=== PATIENT | male | born 1945 | race African-American/Black ===

== ENCOUNTER → 2018-04-26 | Outpatient (CLI) | payer MEDICARE, MEDICAID ==
[~2018-04-26] MED LIST: CALC667C4 PO; FERR-63 PO; FURO-151 PO; HYDR-1348; HYDR-4134 PO; LOP25 PO; METO-385 PO; SEVE800T8 PO; SODI650T PO; [UNRECOGNIZED DRUG - CODE]
== END | disposition home or self-care (01) ==
LOC: RAD 09:58
PROVIDERS: ATTEND Internal Medicine Nephrology
DX: M47.892 Other spondylosis, cervical region (principal); G95.29 Other cord compression
CPT/HCPCS: 72040

== ENCOUNTER → 2018-08-10 | Outpatient (CLI) | payer MEDICARE, MEDICAID | END | disposition home or self-care (01) | LOC: MRI 10:29 | PROVIDERS: ATTEND Neurological Surgery | DX: M48.02 Spinal stenosis, cervical region (principal) | CPT/HCPCS: 72141 ==

== ENCOUNTER → 2018-09-22 | Outpatient (CLI) | payer MEDICARE, MEDICAID | END | disposition home or self-care (01) | LOC: CT 09:34 | PROVIDERS: ATTEND Neurological Surgery | DX: M48.02 Spinal stenosis, cervical region (principal); M40.292 Other kyphosis, cervical region; M47.892 Other spondylosis, cervical region; S12.500D Unspecified displaced fracture of sixth cervical vertebra, subsequent encounter for fracture with routine healing; X58.XXXD Exposure to other specified factors, subsequent encounter ==

== ENCOUNTER 2019-02-19 08:31 | Inpatient (IN) | payer MEDICARE, MEDICAID ==
[~2019-02-19] VITALS: Ht 190.5 cm; Wt 65.0 kg
[2019-02-19] MEDS ORDERED: SODIUM CHLORIDE 0.9% 1,000 ML IV ONE (09:07)
[2019-02-19 10:32] LABS: BASOPHILS % 0.8 % (0.0-2.0); EOSINOPHILS % 0.4 % (0.0-5.0); HEMATOCRIT. 35.8 % (42.0-52.0); HEMOGLOBIN. 11.5 g/dL (14.0-18.0); LYMPHOCYTES % 7.5 % (20.0-50.0); MEAN CORPUSCULAR HEMOGLOBIN 32.7 pg (28.0-32.0); MEAN CORPUSCULAR VOLUME 102.3 fL (80.0-94.0); MEAN PLATELET VOLUME 8.5 fl (7.4-10.4); MONOCYTES % 6.3 % (2.0-8.0); PLATELET 236 x1000/uL (130-400); RED CELL DISTRIBUTION WIDTH 15.5 % (11.6-14.6)
[2019-02-19 10:33] LABS: CHLORIDE 97 mEq/L (98-107)
[2019-02-19 10:37] LABS: ETHANOL BLOOD < 10 mg/dL
[2019-02-19 10:42] LABS: CREATINE KINASE 190 IU/L (39-308)
[2019-02-19] MEDS ORDERED: INSULIN REGULAR (HUMULIN R) 300UNITS/3ML IV NR (12:30)
[2019-02-19] MEDS ORDERED: DEXTROSE 50% WATER 50ML SYRINGE IV NR (12:30)
[2019-02-19] MEDS ORDERED: SODIUM BICARBONATE 8.4% 1 MEQ/ML 50ML SYR IV NR (12:30)
[2019-02-19] MEDS ORDERED: CALCIUM GLUCONATE 1,000 MG in DEXT 5% WATER 90 ML IV NR (12:30)
[2019-02-19 12:49] LABS: CLARITY URINE CLOUDY (CLEAR); COLOR URINE YELLOW (YELLOW); KETONES URINE NEGATIVE (NEGATIVE); LEUKOCYTE ESTERASE URINE TRACE (NEGATIVE); NITRITE URINE NEGATIVE (NEGATIVE); OCCULT BLOOD URINE 1+ (NEGATIVE); PROTEIN URINE 4+ (NEGATIVE); SPECIFIC GRAVITY URINE 1.026 (1.005-1.030); UROBILINOGEN URINE 0.2 E.U./dL (0.2-1.0)
[2019-02-19 13:05] LABS: *AMPHETAMINES SCREEN URINE NEGATIVE (NEGATIVE); *BARBITURATES SCREEN URINE NEGATIVE (NEGATIVE); *BENZODIAZEPINES SCREEN URINE NEGATIVE (NEGATIVE); *COCAINE SCREEN URINE NEGATIVE (NEGATIVE); METHADONE URINE SCREEN NEGATIVE (NEGATIVE); OPIATES URINE SCREEN NEGATIVE (NEGATIVE)
[2019-02-19 13:06] LABS: CANNABINOID URINE SCREEN PRESUMTIVE POSITIVE (NEGATIVE); PHENCYCLIDINE URINE SCREEN NEGATIVE (NEGATIVE)
[2019-02-19] MEDS: METOPROLOL TARTRATE 25MG TABLET PO SCH ×2 (13:30→22:16)
[2019-02-19 14:33] LABS: INR 1.4
[2019-02-19 15:30] VITALS: BP 101/63
[2019-02-19 16:00] VITALS: BP 121/62
[2019-02-19 20:17] VITALS: BP 104/81
[2019-02-19] MEDS ORDERED: SUCR500T MT (20:52)
[2019-02-19] MEDS ORDERED: ISOS30TA12 MT (20:52)
[2019-02-19] MEDS ORDERED: WARF1TAB85 MT (20:52)
[2019-02-19] MEDS ORDERED: VALE150C PO (20:52)
[2019-02-19] MEDS ORDERED: FERR210T MT (20:52)
[2019-02-19 20:58] LABS: CREATINE KINASE 144 IU/L (39-308)
[2019-02-19] MEDS: ENOXAPARIN 30MG/0.3ML SYR SUBCUT SCH (22:33)
[2019-02-20 00:26] VITALS: BP 117/66
[2019-02-20 04:00] VITALS: BP 110/58
[2019-02-20 06:53] LABS: HEMATOCRIT. 30.6 % (42.0-52.0); HEMOGLOBIN. 9.9 g/dL (14.0-18.0); MEAN CORPUSCULAR HEMOGLOBIN 32.9 pg (28.0-32.0); MEAN CORPUSCULAR VOLUME 102.1 fL (80.0-94.0); MEAN PLATELET VOLUME 8.5 fl (7.4-10.4); PLATELET 215 x1000/uL (130-400); RED CELL DISTRIBUTION WIDTH 15.6 % (11.6-14.6)
[2019-02-20 07:06] LABS: D-DIMER 1.31 mg/L FEU (<0.50); INR 1.7
[2019-02-20 07:49] LABS: PLATELET ESTIMATE NORMAL
[2019-02-20 08:00] VITALS: BP 115/58
[2019-02-20 08:06] LABS: CHLORIDE 103 mEq/L (98-107)
[2019-02-20 08:25] LABS: CREATINE KINASE 128 IU/L (39-308); PHOSPHORUS 4.8 mg/dL (2.5-4.9)
[2019-02-20 08:30] LABS: CREATINE KINASE MB FRACTION 7.1 ng/mL (0.5-3.6)
[2019-02-20] MEDS: SEVELAMER CARBONATE 800 MG TABLET PO SCH ×3 (09:38→17:30)
[2019-02-20] MEDS: METOPROLOL TARTRATE 25MG TABLET PO SCH ×2 (09:38→20:47)
[2019-02-20 12:00] VITALS: BP_SYST 111; BP_SYST 138; BP_DIAS 65; BP_DIAS 88
[2019-02-20] MEDS: DEXAMETHASONE 4MG/ML 1ML VIAL IV SCH ×2 (12:30→17:31)
[2019-02-20 16:00] VITALS: BP 115/63
[2019-02-20] MEDS: DOCUSATE SODIUM 100MG CAPSULE PO SCH (17:31)
[2019-02-20 20:00] VITALS: BP 109/50
[2019-02-20] MEDS: POLYETHYLENE GLYCOL 3350 (17GM) 1 DOSE PACK PO SCH (20:47)
[2019-02-20] MEDS: ENOXAPARIN 30MG/0.3ML SYR SUBCUT SCH (20:47)
[2019-02-21] VITALS: BP 130/69
[2019-02-21] MEDS: DEXAMETHASONE 4MG/ML 1ML VIAL IV SCH ×5 (00:29→23:51)
[2019-02-21 04:00] VITALS: BP 116/56
[2019-02-21] MEDS: PANTOPRAZOLE 40MG DR TABLET PO SCH (06:21)
[2019-02-21 06:31] LABS: INR 1.8; PROTHROMBIN TIME 17.6 sec (9.6-11.0)
[2019-02-21 06:51] LABS: HEMATOCRIT. 32.8 % (42.0-52.0); HEMOGLOBIN. 10.7 g/dL (14.0-18.0); MEAN CORPUSCULAR VOLUME 101.2 fL (80.0-94.0); MEAN PLATELET VOLUME 8.6 fl (7.4-10.4); PLATELET 222 x1000/uL (130-400); RED BLOOD CELL COUNT 3.24 mill/uL (4.7-6.1); RED CELL DISTRIBUTION WIDTH 14.5 % (11.6-14.6)
[2019-02-21 08:00] VITALS: BP 111/57
[2019-02-21] MEDS: METOPROLOL TARTRATE 25MG TABLET PO SCH ×2 (09:00→21:18)
[2019-02-21] MEDS: SEVELAMER CARBONATE 800 MG TABLET PO SCH ×3 (09:17→17:10)
[2019-02-21] MEDS: DOCUSATE SODIUM 100MG CAPSULE PO SCH ×2 (09:17→17:10)
[2019-02-21] MEDS: ASCORBIC ACID 500 MG TABLET PO SCH (09:17)
[2019-02-21] MEDS: BISACODYL 10MG SUPP PR SCH (09:18)
[2019-02-21] MEDS: ZINC SULFATE 220 MG ( 50 ) CAPSULE PO SCH (09:18)
[2019-02-21 12:00] VITALS: BP 109/73
[2019-02-21 16:30] VITALS: BP 119/62
[2019-02-21 16:35] LABS: PLATELET ESTIMATE NORMAL
[2019-02-21] MEDS ORDERED: WARFARIN SODIUM 5MG TABLET PO SCH (18:00)
[2019-02-21 20:00] VITALS: BP 122/66
[2019-02-21] MEDS: POLYETHYLENE GLYCOL 3350 (17GM) 1 DOSE PACK PO SCH (21:18)
[2019-02-22] VITALS: BP 111/76
[2019-02-22 04:13] VITALS: BP 107/64
[2019-02-22 06:08] LABS: INR 2.2
[2019-02-22] MEDS: DEXAMETHASONE 4MG/ML 1ML VIAL IV SCH ×3 (06:08→17:06)
[2019-02-22] MEDS: PANTOPRAZOLE 40MG DR TABLET PO SCH (06:24)
[2019-02-22 08:00] VITALS: BP 103/62
[2019-02-22] MEDS: METOPROLOL TARTRATE 25MG TABLET PO SCH (08:35)
[2019-02-22] MEDS: SEVELAMER CARBONATE 800 MG TABLET PO SCH ×3 (08:36→16:48)
[2019-02-22] MEDS: BISACODYL 10MG SUPP PR SCH (08:36)
[2019-02-22] MEDS: DOCUSATE SODIUM 100MG CAPSULE PO SCH ×2 (08:36→16:47)
[2019-02-22] MEDS: ASCORBIC ACID 500 MG TABLET PO SCH (08:36)
[2019-02-22] MEDS: ZINC SULFATE 220 MG ( 50 ) CAPSULE PO SCH (08:37)
[2019-02-22 12:00] VITALS: BP 110/65
[2019-02-22] MEDS: LACTULOSE 20G/30ML UDC PO SCH ×2 (13:58→16:44)
[2019-02-22] MEDS ORDERED: MINERAL OIL ENEMA 133ML PR SCH (14:00)
[2019-02-22 15:26] VITALS: BP 120/65
[2019-02-22] MEDS ORDERED: WARFARIN SODIUM 4MG TABLET PO SCH (18:00)
[2019-02-22 18:09] VITALS: BP 120/65
[2019-02-23] MEDS ORDERED: FAMOTIDINE 20MG TABLET PO SCH (09:00)
[2019-02-23] MEDS ORDERED: FOLIC ACID/VITAMIN B COMP W-C TABLET PO SCH (09:00)
[2019-02-23] MEDS ORDERED: EPOETIN ALFA 4000UNITS/ML VIAL SUBCUT SCH (21:00)
== END 2019-02-22 20:22 | DRG 551 ==
LOC: ER 08:31 → 6WST 12:03 → EDBEDREQ 12:04 → ENRESERV 13:48
PROVIDERS: ADMIT Family Medicine Adult Medicine; ATTEND Family Medicine Adult Medicine
PROC: 5A1D70Z Performance of Urinary Filtration, Intermittent, Less than 6 Hours Per Day (ICD-10-PCS; principal; 2019-02-19)
PROC: 5A1D70Z Performance of Urinary Filtration, Intermittent, Less than 6 Hours Per Day (ICD-10-PCS; 2019-02-20)
PROC: 5A1D70Z Performance of Urinary Filtration, Intermittent, Less than 6 Hours Per Day (ICD-10-PCS; 2019-02-22)
DX: M48.02 Spinal stenosis, cervical region (principal); N18.6 End stage renal disease; G82.50 Quadriplegia, unspecified; L89.153 Pressure ulcer of sacral region, stage 3; I13.2 Hypertensive heart and chronic kidney disease with heart failure and with stage 5 chronic kidney disease, or end stage renal disease; E46 Unspecified protein-calorie malnutrition; I50.22 Chronic systolic (congestive) heart failure; K59.2 Neurogenic bowel, not elsewhere classified; N39.0 Urinary tract infection, site not specified; I42.0 Dilated cardiomyopathy; E87.5 Hyperkalemia; I48.0 Paroxysmal atrial fibrillation; D63.8 Anemia in other chronic diseases classified elsewhere; M48.061 Spinal stenosis, lumbar region without neurogenic claudication; M50.30 Other cervical disc degeneration, unspecified cervical region; M25.78 Osteophyte, vertebrae; M51.36 Other intervertebral disc degeneration, lumbar region; L97.529 Non-pressure chronic ulcer of other part of left foot with unspecified severity; K59.00 Constipation, unspecified; N31.9 Neuromuscular dysfunction of bladder, unspecified; M51.26 Other intervertebral disc displacement, lumbar region; J32.0 Chronic maxillary sinusitis; I48.2 Chronic atrial fibrillation; M47.892 Other spondylosis, cervical region; I27.20 Pulmonary hypertension, unspecified; M43.12 Spondylolisthesis, cervical region; M41.9 Scoliosis, unspecified; F12.90 Cannabis use, unspecified, uncomplicated; R26.2 Difficulty in walking, not elsewhere classified; F48.8 Other specified nonpsychotic mental disorders; I34.0 Nonrheumatic mitral (valve) insufficiency; I73.9 Peripheral vascular disease, unspecified; J45.909 Unspecified asthma, uncomplicated; Z79.01 Long term (current) use of anticoagulants; Z87.891 Personal history of nicotine dependence; Z88.0 Allergy status to penicillin; Z91.15 Patient's noncompliance with renal dialysis; Z99.2 Dependence on renal dialysis; Z88.8 Allergy status to other drugs, medicaments and biological substances; Z79.899 Other long term (current) drug therapy
CPT/HCPCS: 36415; 70551; 71045; 72052; 72141; 72146; 72148; 80048; 80305; 80320; 82140; 82550; 82553; 82962; 83605; 83735; 83880; 84100; 84134; 84484; 85379; 92523; 92610; 93005; 93970; 96365; 96375; 97163; 97166; 99291; J0610; J1100; J1650; J1815; J3490; J7030; J7060; A4315; G0480

== ENCOUNTER 2019-02-22 20:25 | Inpatient (IN) | payer MEDICARE, MEDICAID ==
[~2019-02-22] VITALS: Ht 190.5 cm; Wt 65.0 kg
[2019-02-22 20:25] VITALS: BP 119/74
[~2019-02-22 20:25] MED LIST changes: -FERR-63 PO; +FERR210T MT; -FURO-151 PO; -HYDR-1348; -HYDR-4134 PO; -LOP25 PO; -SEVE800T8 PO; -SODI650T PO; +SUCR500T MT; +VALE150C PO; +WARF1TAB85 MT
[2019-02-22 20:30] VITALS: BP 119/74
[2019-02-22] MEDS ORDERED: ACETAMINOPHEN 325MG TABLET PO PRN (21:15)
[2019-02-23] MEDS: DEXAMETHASONE 4MG/ML 1ML VIAL IV SCH ×5 (01:20→23:03)
[2019-02-23 07:09] LABS: INR 3.9; PROTHROMBIN TIME 37.5 sec (9.6-11.0)
[2019-02-23 08:00] VITALS: BP 111/72
[2019-02-23 08:09] LABS: CHLORIDE 94 mEq/L (98-107)
[2019-02-23] MEDS: LACTULOSE 20G/30ML UDC PO SCH ×3 (08:32→16:53)
[2019-02-23] MEDS: BISACODYL 10MG SUPP PR SCH (08:32)
[2019-02-23] MEDS: FAMOTIDINE 20MG TABLET PO SCH (08:33)
[2019-02-23] MEDS: FOLIC ACID/VITAMIN B COMP W-C TABLET PO SCH (08:33)
[2019-02-23] MEDS: ASCORBIC ACID 500 MG TABLET PO SCH (08:33)
[2019-02-23] MEDS: SEVELAMER CARBONATE 800 MG TABLET PO SCH ×3 (08:33→17:37)
[2019-02-23] MEDS: DOCUSATE SODIUM 100MG CAPSULE PO SCH ×2 (08:33→17:37)
[2019-02-23] MEDS: ZINC SULFATE 220 MG ( 50 ) CAPSULE PO SCH (08:33)
[2019-02-23] MEDS: METOPROLOL TARTRATE 25MG TABLET PO SCH ×2 (08:34→23:00)
[2019-02-23] MEDS ORDERED: WARFARIN SODIUM 4MG TABLET PO SCH (18:00)
[2019-02-23] MEDS ORDERED: EPOETIN ALFA 4000UNITS/ML VIAL SUBCUT SCH (21:00)
[2019-02-23] MEDS: POLYETHYLENE GLYCOL 3350 (17GM) 1 DOSE PACK PO SCH (21:00)
[2019-02-23 21:17] VITALS: BP 115/77
[2019-02-23 21:47] VITALS: BP 115/77
[2019-02-23 21:47] LABS: HEMATOCRIT. 30.9 % (42.0-52.0); HEMOGLOBIN. 10.1 g/dL (14.0-18.0); MEAN CORPUSCULAR HEMOGLOBIN 32.9 pg (28.0-32.0); MEAN CORPUSCULAR VOLUME 100.6 fL (80.0-94.0); MEAN PLATELET VOLUME 8.8 fl (7.4-10.4); PLATELET 182 x1000/uL (130-400); RED BLOOD CELL COUNT 3.07 mill/uL (4.7-6.1); RED CELL DISTRIBUTION WIDTH 14.7 % (11.6-14.6)
[2019-02-23 22:06] LABS: PLATELET ESTIMATE NORMAL
[2019-02-23 22:26] VITALS: BP 116/70
[2019-02-24] MEDS: DEXAMETHASONE 4MG/ML 1ML VIAL IV SCH ×4 (06:02→23:05)
[2019-02-24 07:17] LABS: INR 3.8; PROTHROMBIN TIME 37.4 sec (9.6-11.0)
[2019-02-24 07:28] LABS: HEMOGLOBIN. 10.8 g/dL (14.0-18.0); MEAN CORPUSCULAR VOLUME 101.2 fL (80.0-94.0); MEAN PLATELET VOLUME 8.6 fl (7.4-10.4); PLATELET 211 x1000/uL (130-400); RED BLOOD CELL COUNT 3.26 mill/uL (4.7-6.1); RED CELL DISTRIBUTION WIDTH 14.7 % (11.6-14.6)
[2019-02-24 07:35] LABS: FERRITIN 896 ng/mL (22-322)
[2019-02-24 07:45] LABS: CHLORIDE 98 mEq/L (98-107)
[2019-02-24 07:48] LABS: VITAMIN B12 SERUM >2000 pg/mL pg/mL (211-911)
[2019-02-24 07:50] VITALS: BP 128/66
[2019-02-24 07:59] LABS: PHOSPHORUS 6.5 mg/dL (2.5-4.9)
[2019-02-24 08:00] LABS: TOTAL IRON BINDING CAPACITY 181 ug/dL (250-450)
[2019-02-24] MEDS: BISACODYL 10MG SUPP PR SCH (09:00)
[2019-02-24] MEDS: FOLIC ACID/VITAMIN B COMP W-C TABLET PO SCH (09:04)
[2019-02-24] MEDS: DOCUSATE SODIUM 100MG CAPSULE PO SCH ×2 (09:04→16:04)
[2019-02-24] MEDS: SEVELAMER CARBONATE 800 MG TABLET PO SCH ×3 (09:04→17:01)
[2019-02-24] MEDS: ASCORBIC ACID 500 MG TABLET PO SCH (09:04)
[2019-02-24] MEDS: ZINC SULFATE 220 MG ( 50 ) CAPSULE PO SCH (09:04)
[2019-02-24] MEDS: FAMOTIDINE 20MG TABLET PO SCH (09:04)
[2019-02-24] MEDS: METOPROLOL TARTRATE 25MG TABLET PO SCH ×2 (09:05→21:27)
[2019-02-24] MEDS: GUAIFENESIN-DM 200MG-20MG/10ML UDC PO PRN ×2 (12:19→21:25)
[2019-02-24 12:27] LABS: PLATELET ESTIMATE NORMAL
[2019-02-24 20:00] VITALS: BP 121/74
[2019-02-24] MEDS: POLYETHYLENE GLYCOL 3350 (17GM) 1 DOSE PACK PO SCH (21:00)
[2019-02-25 03:45] VITALS: BP 123/74
[2019-02-25] MEDS: DEXAMETHASONE 4MG/ML 1ML VIAL IV SCH ×4 (05:11→23:50)
[2019-02-25 05:18] VITALS: BP 119/62
[2019-02-25 06:16] LABS: HEMATOCRIT. 35.3 % (42.0-52.0); HEMOGLOBIN. 11.3 g/dL (14.0-18.0); MEAN CORPUSCULAR HEMOGLOBIN 32.4 pg (28.0-32.0); MEAN CORPUSCULAR VOLUME 101.4 fL (80.0-94.0); MEAN PLATELET VOLUME 9.2 fl (7.4-10.4); PLATELET 211 x1000/uL (130-400); RED BLOOD CELL COUNT 3.48 mill/uL (4.7-6.1); RED CELL DISTRIBUTION WIDTH 14.5 % (11.6-14.6)
[2019-02-25 06:29] LABS: INR 3.6; PROTHROMBIN TIME 34.6 sec (9.6-11.0)
[2019-02-25 08:20] VITALS: BP 112/69
[2019-02-25] MEDS: BISACODYL 10MG SUPP PR SCH (08:30)
[2019-02-25] MEDS: ASCORBIC ACID 500 MG TABLET PO SCH (08:30)
[2019-02-25] MEDS: FOLIC ACID/VITAMIN B COMP W-C TABLET PO SCH (08:30)
[2019-02-25] MEDS: ZINC SULFATE 220 MG ( 50 ) CAPSULE PO SCH (08:30)
[2019-02-25] MEDS: FAMOTIDINE 20MG TABLET PO SCH (08:30)
[2019-02-25] MEDS: DOCUSATE SODIUM 100MG CAPSULE PO SCH ×2 (08:30→17:25)
[2019-02-25] MEDS: SEVELAMER CARBONATE 800 MG TABLET PO SCH ×3 (08:30→17:25)
[2019-02-25] MEDS: METOPROLOL TARTRATE 25MG TABLET PO SCH ×2 (08:31→21:07)
[2019-02-25 09:54] LABS: PLATELET ESTIMATE NORMAL
[2019-02-25 20:00] VITALS: BP 113/67
[2019-02-25] MEDS: POLYETHYLENE GLYCOL 3350 (17GM) 1 DOSE PACK PO SCH (21:00)
[2019-02-25] MEDS: GUAIFENESIN-DM 200MG-20MG/10ML UDC PO PRN (23:41)
[2019-02-26] MEDS: DEXAMETHASONE 4MG/ML 1ML VIAL IV SCH ×4 (05:37→23:17)
[2019-02-26 06:43] LABS: HEMATOCRIT. 35.9 % (42.0-52.0); HEMOGLOBIN. 11.6 g/dL (14.0-18.0); INR 2.5; MEAN CORPUSCULAR HEMOGLOBIN 32.8 pg (28.0-32.0); MEAN CORPUSCULAR VOLUME 101.6 fL (80.0-94.0); MEAN PLATELET VOLUME 9.3 fl (7.4-10.4); PLATELET 172 x1000/uL (130-400); PROTHROMBIN TIME 24.8 sec (9.6-11.0); RED BLOOD CELL COUNT 3.53 mill/uL (4.7-6.1); RED CELL DISTRIBUTION WIDTH 14.7 % (11.6-14.6)
[2019-02-26 07:48] VITALS: BP 109/67
[2019-02-26] MEDS: METOPROLOL TARTRATE 25MG TABLET PO SCH ×2 (08:05→21:21)
[2019-02-26] MEDS: BISACODYL 10MG SUPP PR SCH (08:06)
[2019-02-26] MEDS: ZINC SULFATE 220 MG ( 50 ) CAPSULE PO SCH (08:38)
[2019-02-26] MEDS: GUAIFENESIN-DM 200MG-20MG/10ML UDC PO PRN ×2 (08:38→22:26)
[2019-02-26] MEDS: ASCORBIC ACID 500 MG TABLET PO SCH (08:38)
[2019-02-26] MEDS: SEVELAMER CARBONATE 800 MG TABLET PO SCH ×3 (08:38→17:21)
[2019-02-26] MEDS: FAMOTIDINE 20MG TABLET PO SCH (08:38)
[2019-02-26] MEDS: FOLIC ACID/VITAMIN B COMP W-C TABLET PO SCH (08:38)
[2019-02-26] MEDS: DOCUSATE SODIUM 100MG CAPSULE PO SCH ×2 (08:39→16:02)
[2019-02-26] MEDS ORDERED: ZOLPIDEM TARTRATE 5MG TABLET PO PRN (14:15)
[2019-02-26] MEDS ORDERED: WARFARIN SODIUM 2MG TABLET PO NR (18:00)
[2019-02-26 19:20] LABS: PLATELET ESTIMATE NORMAL
[2019-02-26 20:00] VITALS: BP 119/69
[2019-02-26] MEDS: POLYETHYLENE GLYCOL 3350 (17GM) 1 DOSE PACK PO SCH (21:23)
[2019-02-27] MEDS: DEXAMETHASONE 4MG/ML 1ML VIAL IV SCH ×3 (05:21→22:00)
[2019-02-27 06:36] LABS: PROTHROMBIN TIME 20.1 sec (9.6-11.0)
[2019-02-27 07:54] VITALS: BP 120/77
[2019-02-27 08:17] VITALS: BP 120/77
[2019-02-27] MEDS: BISACODYL 10MG SUPP PR SCH (08:57)
[2019-02-27] MEDS: FAMOTIDINE 20MG TABLET PO SCH (08:57)
[2019-02-27] MEDS: SEVELAMER CARBONATE 800 MG TABLET PO SCH ×3 (08:57→16:13)
[2019-02-27] MEDS: FOLIC ACID/VITAMIN B COMP W-C TABLET PO SCH (08:57)
[2019-02-27] MEDS: ZINC SULFATE 220 MG ( 50 ) CAPSULE PO SCH (08:57)
[2019-02-27] MEDS: ASCORBIC ACID 500 MG TABLET PO SCH (08:57)
[2019-02-27] MEDS: DOCUSATE SODIUM 100MG CAPSULE PO SCH ×2 (08:57→16:14)
[2019-02-27] MEDS: METOPROLOL TARTRATE 25MG TABLET PO SCH ×2 (09:00→21:00)
[2019-02-27] MEDS ORDERED: WARFARIN SODIUM 2MG TABLET PO NR (18:00)
[2019-02-27] MEDS: DIPHENHYDRAMINE 25MG CAPSULE PO SCH (18:56)
[2019-02-27 20:00] VITALS: BP 117/66
[2019-02-27] MEDS: POLYETHYLENE GLYCOL 3350 (17GM) 1 DOSE PACK PO SCH (21:00)
[2019-02-28] MEDS: DIPHENHYDRAMINE 25MG CAPSULE PO SCH ×2 (00:30→06:38)
[2019-02-28] MEDS: GUAIFENESIN-DM 200MG-20MG/10ML UDC PO PRN ×2 (06:36→16:28)
[2019-02-28] MEDS: DEXAMETHASONE 4MG/ML 1ML VIAL IV SCH ×3 (06:37→22:40)
[2019-02-28 06:40] LABS: INR 1.6
[2019-02-28] MEDS ORDERED: BARIUM SULFATE 176 GM SUSP.RECON ONE (08:19)
[2019-02-28] MEDS: DOCUSATE SODIUM 100MG CAPSULE PO SCH ×2 (08:33→17:53)
[2019-02-28] MEDS: SEVELAMER CARBONATE 800 MG TABLET PO SCH ×4 (08:34→17:53)
[2019-02-28] MEDS: FAMOTIDINE 20MG TABLET PO SCH (08:34)
[2019-02-28] MEDS: METOPROLOL TARTRATE 25MG TABLET PO SCH ×2 (08:34→22:42)
[2019-02-28] MEDS: ZINC SULFATE 220 MG ( 50 ) CAPSULE PO SCH (08:35)
[2019-02-28] MEDS: FOLIC ACID/VITAMIN B COMP W-C TABLET PO SCH (08:35)
[2019-02-28] MEDS: ASCORBIC ACID 500 MG TABLET PO SCH (08:35)
[2019-02-28] MEDS: BISACODYL 10MG SUPP PR SCH (08:36)
[2019-02-28] MEDS ORDERED: WARFARIN SODIUM 4MG TABLET PO SCH (18:00)
[2019-02-28 20:00] VITALS: BP 122/73
[2019-02-28] MEDS ORDERED: CETIRIZINE 10MG TABLET PO SCH (21:00)
[2019-02-28] MEDS ORDERED: ZOLPIDEM TARTRATE 5MG TABLET PO PRN (21:00)
[2019-02-28] MEDS: POLYETHYLENE GLYCOL 3350 (17GM) 1 DOSE PACK PO SCH (22:38)
[2019-02-28 23:46] LABS: HEMATOCRIT. 35.9 % (42.0-52.0); HEMOGLOBIN. 11.5 g/dL (14.0-18.0); MEAN CORPUSCULAR HEMOGLOBIN 33.1 pg (28.0-32.0); MEAN CORPUSCULAR VOLUME 103.3 fL (80.0-94.0); MEAN PLATELET VOLUME 9.4 fl (7.4-10.4); PLATELET 163 x1000/uL (130-400); RED BLOOD CELL COUNT 3.47 mill/uL (4.7-6.1); RED CELL DISTRIBUTION WIDTH 14.5 % (11.6-14.6)
[2019-03-01 00:42] LABS: PLATELET ESTIMATE NORMAL
[2019-03-01] MEDS ORDERED: HEPARIN SODIUM 1,000 UNIT/1ML VIAL IV NR (06:30)
[2019-03-01 08:00] VITALS: BP 96/49
[2019-03-01 08:53] LABS: HEMATOCRIT. 33.2 % (42.0-52.0); HEMOGLOBIN. 10.7 g/dL (14.0-18.0); MEAN CORPUSCULAR HEMOGLOBIN 32.4 pg (28.0-32.0); MEAN CORPUSCULAR VOLUME 100.3 fL (80.0-94.0); PLATELET 186 x1000/uL (130-400); RED BLOOD CELL COUNT 3.31 mill/uL (4.7-6.1); RED CELL DISTRIBUTION WIDTH 14.7 % (11.6-14.6)
[2019-03-01 09:00] LABS: INR 1.6; PROTHROMBIN TIME 15.6 sec (9.6-11.0)
[2019-03-01] MEDS: DOCUSATE SODIUM 100MG CAPSULE PO SCH (09:00)
[2019-03-01] MEDS: ASCORBIC ACID 500 MG TABLET PO SCH (09:00)
[2019-03-01] MEDS: FAMOTIDINE 20MG TABLET PO SCH (09:00)
[2019-03-01] MEDS: BISACODYL 10MG SUPP PR SCH (09:00)
[2019-03-01] MEDS: ZINC SULFATE 220 MG ( 50 ) CAPSULE PO SCH (09:00)
[2019-03-01] MEDS: FOLIC ACID/VITAMIN B COMP W-C TABLET PO SCH (09:00)
[2019-03-01] MEDS: SEVELAMER CARBONATE 800 MG TABLET PO SCH (09:00)
[2019-03-01] MEDS: METOPROLOL TARTRATE 25MG TABLET PO SCH (09:00)
[2019-03-01 09:01] VITALS: BP 96/49
[2019-03-01 09:15] LABS: PHOSPHORUS 5.1 mg/dL (2.5-4.9)
[2019-03-01 09:46] LABS: BG BASE EXCESS -2.5 mmol/L (-2.0-2.0); BG CARBOXYHEMOGLOBIN 0.9 % (0.5-1.5); BG DEOXYHEMOGLOBIN 1.9 % (0.0-5.0); BG FRACTION INSPIRED OXYGEN 28; BG METHEMOGLOBIN 0.1 % (0.0-1.5); BG OXYGEN SATURATION 98.1 % (92.0-98.5); BG OXYHEMOGLOBIN 97.1 % (94.0-97.0); BG PCO2 56.7 mmHg (35.0-45.0); BG PH 7.263 (7.350-7.450); BG PO2 138.1 mmHg (75.0-100.0); BG SAMPLE SITE RIGHT BRACHIAL; BG TOTAL HEMOGLOBIN 11.3 g/dL (12.0-18.0); BG VENT MODE NASAL CANNULA
[2019-03-01 13:57] LABS: PLATELET ESTIMATE NORMAL
[2019-03-02 04:15] LABS: 25-HYDROXY VITAMIN D3 18 ng/mL (.)
== END 2019-03-01 10:22 | disposition short-term general hospital (02) | DRG 551 ==
PROVIDERS: ADMIT Physical Medicine & Rehabilitation Spinal Cord Injury Medicine; ATTEND Family Medicine Adult Medicine
PROC: 5A1D70Z Performance of Urinary Filtration, Intermittent, Less than 6 Hours Per Day (ICD-10-PCS; principal; 2019-02-23)
PROC: 5A1D70Z Performance of Urinary Filtration, Intermittent, Less than 6 Hours Per Day (ICD-10-PCS; 2019-02-25)
PROC: 5A1D70Z Performance of Urinary Filtration, Intermittent, Less than 6 Hours Per Day (ICD-10-PCS; 2019-02-27)
PROC: 5A1D70Z Performance of Urinary Filtration, Intermittent, Less than 6 Hours Per Day (ICD-10-PCS; 2019-03-01)
DX: M48.02 Spinal stenosis, cervical region (principal); L89.153 Pressure ulcer of sacral region, stage 3; G82.50 Quadriplegia, unspecified; N18.6 End stage renal disease; K59.2 Neurogenic bowel, not elsewhere classified; I13.2 Hypertensive heart and chronic kidney disease with heart failure and with stage 5 chronic kidney disease, or end stage renal disease; E46 Unspecified protein-calorie malnutrition; E87.1 Hypo-osmolality and hyponatremia; I42.9 Cardiomyopathy, unspecified; I50.22 Chronic systolic (congestive) heart failure; I38 Endocarditis, valve unspecified; Z68.1 Body mass index [BMI] 19.9 or less, adult; N31.9 Neuromuscular dysfunction of bladder, unspecified; K59.00 Constipation, unspecified; R33.9 Retention of urine, unspecified; R41.89 Other symptoms and signs involving cognitive functions and awareness; I48.0 Paroxysmal atrial fibrillation; R74.8 Abnormal levels of other serum enzymes; D63.8 Anemia in other chronic diseases classified elsewhere; E87.5 Hyperkalemia; I27.22 Pulmonary hypertension due to left heart disease; M48.061 Spinal stenosis, lumbar region without neurogenic claudication; G47.00 Insomnia, unspecified; I48.2 Chronic atrial fibrillation; L97.529 Non-pressure chronic ulcer of other part of left foot with unspecified severity; I73.9 Peripheral vascular disease, unspecified; R49.0 Dysphonia; R26.9 Unspecified abnormalities of gait and mobility; M47.22 Other spondylosis with radiculopathy, cervical region; M50.30 Other cervical disc degeneration, unspecified cervical region; Z99.2 Dependence on renal dialysis; Z79.01 Long term (current) use of anticoagulants; Z87.891 Personal history of nicotine dependence; Z88.0 Allergy status to penicillin; Z82.49 Family history of ischemic heart disease and other diseases of the circulatory system; Z88.8 Allergy status to other drugs, medicaments and biological substances
CPT/HCPCS: 36415; 36600; 71045; 80048; 82306; 82375; 82607; 82728; 82746; 82805; 83540; 83550; 83735; 83880; 84100; 84134; 84443; 92610; 93923; 97110; 97112; 97116; 97162; 97167; 97530; 97535; J1100; J1644; Q0163

== ENCOUNTER 2019-03-01 10:37 | Inpatient (IN) | payer MEDICARE, MEDICAID ==
[2019-03-01] VITALS (43 sets, daily range): BP systolic 43–174; BP diastolic 27–120
[~2019-03-01] VITALS: Ht 190.5 cm; Wt 76.2 kg
[2019-03-01] MEDS ORDERED: BLOOD SUGAR DIAGNOSTIC STRIP TEST SCH (11:30)
[2019-03-01] MEDS ORDERED: IPRATROPIUM/ALBUTEROL 0.5-3(2.5)MG/3ML NEB HHN PRN (11:30)
[2019-03-01] MEDS ORDERED: DEXTROSE 50% WATER 50ML SYRINGE IV PRN ×2 (11:30)
[2019-03-01] MEDS: INSULIN LISPRO 100 UNITS/ML SUBCUT SCH ×3 (12:00→23:30)
[2019-03-01 13:29] LABS: BG BASE EXCESS -1.5 mmol/L (-2.0-2.0); BG BILEVEL POS AIRWAY PRESSURE ST=15/5; BG CARBOXYHEMOGLOBIN 0.7 % (0.5-1.5); BG DEOXYHEMOGLOBIN 1.6 % (0.0-5.0); BG FRACTION INSPIRED OXYGEN 40; BG HCO3 ACT 25.8 mmol/L (22.0-26.0); BG METHEMOGLOBIN 0.2 % (0.0-1.5); BG OXYGEN SATURATION 98.4 % (92.0-98.5); BG OXYHEMOGLOBIN 97.5 % (94.0-97.0); BG PCO2 55.4 mmHg (35.0-45.0); BG PH 7.286 (7.350-7.450); BG PO2 142.4 mmHg (75.0-100.0); BG PRESSURE SUPPORT 10; BG SAMPLE SITE RIGHT BRACHIAL; BG TOTAL HEMOGLOBIN 11.8 g/dL (12.0-18.0); BG VENT MODE MASK - BIPAP; BG VENT RATE 16 set
[2019-03-01] MEDS ORDERED: ACETAMINOPHEN 325MG TABLET PO PRN (14:45)
[2019-03-01] MEDS ORDERED: BISACODYL 10MG SUPP PR PRN (14:45)
[2019-03-01] MEDS ORDERED: ZOLPIDEM TARTRATE 5MG TABLET PO PRN (14:45)
[2019-03-01] MEDS ORDERED: GUAIFENESIN-DM 200MG-20MG/10ML UDC PO PRN (14:45)
[2019-03-01] MEDS ORDERED: CEFEPIME 1,000 MG in DEXTROSE 5% WATER 50 ML IV SCH ×2 (16:00→17:00)
[2019-03-01 16:13] LABS: BG BASE EXCESS -3.6 mmol/L (-2.0-2.0); BG BILEVEL POS AIRWAY PRESSURE 20/5; BG CARBOXYHEMOGLOBIN 0.8 % (0.5-1.5); BG DEOXYHEMOGLOBIN 1.5 % (0.0-5.0); BG FRACTION INSPIRED OXYGEN 40; BG HCO3 ACT 23.9 mmol/L (22.0-26.0); BG METHEMOGLOBIN 0.1 % (0.0-1.5); BG OXYGEN SATURATION 98.5 % (92.0-98.5); BG OXYHEMOGLOBIN 97.6 % (94.0-97.0); BG PCO2 54.8 mmHg (35.0-45.0); BG PH 7.258 (7.350-7.450); BG PO2 150.8 mmHg (75.0-100.0); BG SAMPLE SITE RIGHT BRACHIAL; BG TOTAL HEMOGLOBIN 11.5 g/dL (12.0-18.0); BG VENT MODE MASK - BIPAP; BG VENT RATE 16 set
[2019-03-01] MEDS ORDERED: ONDANSETRON HCL 4MG/2ML INJ IV PRN (16:15)
[2019-03-01] MEDS: IPRATROPIUM/ALBUTEROL 0.5-3(2.5)MG/3ML NEB HHN SCH ×2 (16:25→20:28)
[2019-03-01] MEDS: ENOXAPARIN 30MG/0.3ML SYR SUBCUT SCH (16:39)
[2019-03-01] MEDS: SEVELAMER CARBONATE 800 MG TABLET PO SCH (17:00)
[2019-03-01] MEDS ORDERED: CEFEPIME 1GM PREMIX 50 ML IV SCH (17:00)
[2019-03-01] MEDS ORDERED: WARFARIN SODIUM 4MG TABLET PO SCH (18:00)
[2019-03-01] MEDS ORDERED: VANCOMYCIN 1500MG in DEXTROSE 5% WATER 250ML IV SCH (18:00)
[2019-03-01] MEDS: BLOOD SUGAR DIAGNOSTIC STRIP TEST SCH ×2 (18:27→23:30)
[2019-03-01 19:33] LABS: INR 1.5; PROTHROMBIN TIME 15.4 sec (9.6-11.0)
[2019-03-01] MEDS: METOPROLOL TARTRATE 25MG TABLET PO SCH (20:58)
[2019-03-01] MEDS: CETIRIZINE 10MG TABLET PO SCH (21:22)
[2019-03-01] MEDS: DEXAMETHASONE 4MG/ML 1ML VIAL IV SCH (21:22)
[2019-03-02] VITALS (40 sets, daily range): BP systolic 72–126; BP diastolic 24–76
[2019-03-02] MEDS: IPRATROPIUM/ALBUTEROL 0.5-3(2.5)MG/3ML NEB HHN SCH ×6 (00:10→20:32)
[2019-03-02 05:18] LABS: HEMATOCRIT. 33.3 % (42.0-52.0); HEMOGLOBIN. 10.4 g/dL (14.0-18.0); MEAN CORPUSCULAR HEMOGLOBIN 31.8 pg (28.0-32.0); MEAN CORPUSCULAR VOLUME 101.2 fL (80.0-94.0); MEAN PLATELET VOLUME 9.3 fl (7.4-10.4); PLATELET 182 x1000/uL (130-400); RED BLOOD CELL COUNT 3.29 mill/uL (4.7-6.1); RED CELL DISTRIBUTION WIDTH 14.5 % (11.6-14.6)
[2019-03-02 05:20] LABS: INR 1.6
[2019-03-02 05:29] LABS: PHOSPHORUS 7.9 mg/dL (2.5-4.9)
[2019-03-02] MEDS: INSULIN LISPRO 100 UNITS/ML SUBCUT SCH ×4 (06:00→23:50)
[2019-03-02] MEDS: BLOOD SUGAR DIAGNOSTIC STRIP TEST SCH ×4 (06:05→23:50)
[2019-03-02] MEDS: DEXAMETHASONE 4MG/ML 1ML VIAL IV SCH ×2 (06:05→17:20)
[2019-03-02 07:41] LABS: BG BASE EXCESS -2.2 mmol/L (-2.0-2.0); BG BILEVEL POS AIRWAY PRESSURE 20/5; BG CARBOXYHEMOGLOBIN 0.6 % (0.5-1.5); BG DEOXYHEMOGLOBIN 1.8 % (0.0-5.0); BG HCO3 ACT 23.8 mmol/L (22.0-26.0); BG METHEMOGLOBIN 0.2 % (0.0-1.5); BG OXYGEN SATURATION 98.2 % (92.0-98.5); BG OXYHEMOGLOBIN 97.4 % (94.0-97.0); BG PCO2 45.7 mmHg (35.0-45.0); BG PH 7.334 (7.350-7.450); BG PO2 122.7 mmHg (75.0-100.0); BG SAMPLE SITE RIGHT BRACHIAL; BG VENT MODE MASK - BIPAP; BG VENT RATE 20 set
[2019-03-02] MEDS: METOPROLOL TARTRATE 25MG TABLET PO SCH ×2 (09:00→20:36)
[2019-03-02 09:08] LABS: NUCLEATED RED BLOOD CELLS 1 /100 WBC
[2019-03-02 09:09] LABS: PLATELET ESTIMATE NORMAL
[2019-03-02] MEDS: ZINC SULFATE 220 MG ( 50 ) CAPSULE PO SCH (09:19)
[2019-03-02] MEDS: ENOXAPARIN 30MG/0.3ML SYR SUBCUT SCH (09:19)
[2019-03-02] MEDS: FOLIC ACID/VITAMIN B COMP W-C TABLET PO SCH (09:20)
[2019-03-02] MEDS: FAMOTIDINE 20MG TABLET PO SCH (09:20)
[2019-03-02] MEDS: SEVELAMER CARBONATE 800 MG TABLET PO SCH ×3 (09:20→17:20)
[2019-03-02] MEDS: DOCUSATE SODIUM 100MG CAPSULE PO SCH ×2 (09:20→17:21)
[2019-03-02] MEDS: ASCORBIC ACID 500 MG TABLET PO SCH (09:21)
[2019-03-02] MEDS ORDERED: WARFARIN SODIUM 3MG TABLET PO SCH (18:00)
[2019-03-02] MEDS: CEFEPIME 500 MG in DEXTROSE 5% WATER 50 ML IV SCH (18:33)
[2019-03-02] MEDS: POLYETHYLENE GLYCOL 3350 (17GM) 1 DOSE PACK PO SCH (20:43)
[2019-03-02] MEDS: CETIRIZINE 10MG TABLET PO SCH (20:43)
[2019-03-03] VITALS (28 sets, daily range): BP systolic 95–150; BP diastolic 27–85
[2019-03-03] MEDS: IPRATROPIUM/ALBUTEROL 0.5-3(2.5)MG/3ML NEB HHN SCH ×6 (00:30→20:35)
[2019-03-03 05:09] LABS: INR 2.2; PROTHROMBIN TIME 21.4 sec (9.6-11.0)
[2019-03-03 05:10] LABS: HEMATOCRIT. 30.1 % (42.0-52.0); HEMOGLOBIN. 9.8 g/dL (14.0-18.0); MEAN CORPUSCULAR HEMOGLOBIN 32.7 pg (28.0-32.0); MEAN CORPUSCULAR VOLUME 100.6 fL (80.0-94.0); PLATELET 170 x1000/uL (130-400); RED BLOOD CELL COUNT 2.99 mill/uL (4.7-6.1); RED CELL DISTRIBUTION WIDTH 14.2 % (11.6-14.6)
[2019-03-03] MEDS: INSULIN LISPRO 100 UNITS/ML SUBCUT SCH ×3 (06:00→17:09)
[2019-03-03] MEDS: BLOOD SUGAR DIAGNOSTIC STRIP TEST SCH ×3 (06:04→17:09)
[2019-03-03 07:25] LABS: PLATELET ESTIMATE NORMAL
[2019-03-03] MEDS ORDERED: VANCOMYCIN 1250MG in DEXTROSE 5% WATER 250ML IV NR (09:00)
[2019-03-03] MEDS: ENOXAPARIN 30MG/0.3ML SYR SUBCUT SCH ×2 (09:00→09:07)
[2019-03-03] MEDS: METOPROLOL TARTRATE 25MG TABLET PO SCH ×2 (09:00→21:00)
[2019-03-03] MEDS: FOLIC ACID/VITAMIN B COMP W-C TABLET PO SCH (09:05)
[2019-03-03] MEDS: DOCUSATE SODIUM 100MG CAPSULE PO SCH ×2 (09:05→17:31)
[2019-03-03] MEDS: ASCORBIC ACID 500 MG TABLET PO SCH (09:06)
[2019-03-03] MEDS: DEXAMETHASONE 4MG/ML 1ML VIAL IV SCH ×2 (09:06→17:31)
[2019-03-03] MEDS: FAMOTIDINE 20MG TABLET PO SCH (09:06)
[2019-03-03] MEDS: ZINC SULFATE 220 MG ( 50 ) CAPSULE PO SCH (09:06)
[2019-03-03] MEDS: SEVELAMER CARBONATE 800 MG TABLET PO SCH ×3 (09:19→17:31)
[2019-03-03 09:36] LABS: BG BASE EXCESS -2.3 mmol/L (-2.0-2.0); BG CARBOXYHEMOGLOBIN 0.8 % (0.5-1.5); BG DEOXYHEMOGLOBIN 1.9 % (0.0-5.0); BG FRACTION INSPIRED OXYGEN 30; BG HCO3 ACT 25.7 mmol/L (22.0-26.0); BG METHEMOGLOBIN 0.1 % (0.0-1.5); BG OXYGEN SATURATION 98.1 % (92.0-98.5); BG OXYHEMOGLOBIN 97.2 % (94.0-97.0); BG PCO2 60.6 mmHg (35.0-45.0); BG PH 7.245 (7.350-7.450); BG PO2 136.2 mmHg (75.0-100.0); BG SAMPLE SITE RIGHT BRACHIAL; BG TOTAL HEMOGLOBIN 10.5 g/dL (12.0-18.0); BG VENT MODE NASAL CANNULA
[2019-03-03] MEDS: CEFEPIME 500 MG in DEXTROSE 5% WATER 50 ML IV SCH (17:31)
[2019-03-03] MEDS ORDERED: WARFARIN SODIUM 1MG TABLET PO SCH (18:00)
[2019-03-03] MEDS: CETIRIZINE 10MG TABLET PO SCH (22:00)
[2019-03-03] MEDS: POLYETHYLENE GLYCOL 3350 (17GM) 1 DOSE PACK PO SCH (22:00)
[2019-03-04] VITALS (32 sets, daily range): BP systolic 107–134; BP diastolic 50–76
[2019-03-04] MEDS: IPRATROPIUM/ALBUTEROL 0.5-3(2.5)MG/3ML NEB HHN SCH ×5 (00:30→16:42)
[2019-03-04] MEDS ORDERED: INSULIN LISPRO 100 UNITS/ML SUBCUT SCH (06:30)
[2019-03-04] MEDS ORDERED: BLOOD SUGAR DIAGNOSTIC STRIP TEST SCH (06:30)
[2019-03-04 06:45] LABS: INR 1.8; PROTHROMBIN TIME 18.5 sec (9.6-11.0)
[2019-03-04] MEDS: INSULIN LISPRO 100 UNITS/ML SUBCUT SCH ×4 (07:50→16:30)
[2019-03-04] MEDS: BLOOD SUGAR DIAGNOSTIC STRIP TEST SCH ×3 (07:50→16:30)
[2019-03-04] MEDS: FOLIC ACID/VITAMIN B COMP W-C TABLET PO SCH (08:24)
[2019-03-04] MEDS: DEXAMETHASONE 4MG/ML 1ML VIAL IV SCH (08:24)
[2019-03-04] MEDS: DOCUSATE SODIUM 100MG CAPSULE PO SCH ×2 (08:25→17:00)
[2019-03-04] MEDS: METOPROLOL TARTRATE 25MG TABLET PO SCH (08:25)
[2019-03-04] MEDS: ASCORBIC ACID 500 MG TABLET PO SCH (08:25)
[2019-03-04] MEDS: SEVELAMER CARBONATE 800 MG TABLET PO SCH ×3 (08:25→17:00)
[2019-03-04] MEDS: FAMOTIDINE 20MG TABLET PO SCH (08:25)
[2019-03-04] MEDS: ZINC SULFATE 220 MG ( 50 ) CAPSULE PO SCH (08:25)
[2019-03-04 09:19] LABS: BG CARBOXYHEMOGLOBIN 1.4 % (0.5-1.5); BG DEOXYHEMOGLOBIN 2.7 % (0.0-5.0); BG FRACTION INSPIRED OXYGEN 30; BG HCO3 ACT 22.1 mmol/L (22.0-26.0); BG METHEMOGLOBIN 0.3 % (0.0-1.5); BG OXYGEN SATURATION 97.3 % (92.0-98.5); BG OXYHEMOGLOBIN 95.6 % (94.0-97.0); BG PCO2 39.7 mmHg (35.0-45.0); BG PH 7.363 (7.350-7.450); BG PO2 96.4 mmHg (75.0-100.0); BG SAMPLE SITE RIGHT BRACHIAL; BG TOTAL HEMOGLOBIN 7.2 g/dL (12.0-18.0); BG VENT MODE NASAL CANNULA
[2019-03-04 09:32] LABS: HEMATOCRIT. 28.3 % (42.0-52.0); HEMOGLOBIN. 9.1 g/dL (14.0-18.0); MEAN CORPUSCULAR HEMOGLOBIN 32.6 pg (28.0-32.0); MEAN CORPUSCULAR VOLUME 101.7 fL (80.0-94.0); RED BLOOD CELL COUNT 2.78 mill/uL (4.7-6.1); RED CELL DISTRIBUTION WIDTH 14.5 % (11.6-14.6)
[2019-03-04 09:33] LABS: MEAN PLATELET VOLUME 8.6 fl (7.4-10.4); PLATELET 161 x1000/uL (130-400)
[2019-03-04 10:28] LABS: PLATELET ESTIMATE NORMAL
[2019-03-04] MEDS ORDERED: DEXAMETHASONE 4MG/ML 1ML VIAL IV SCH (17:00)
[2019-03-04] MEDS: CEFEPIME 500 MG in DEXTROSE 5% WATER 50 ML IV SCH (17:00)
== END 2019-03-04 17:50 | DRG 871 ==
LOC: MICUSO 10:37
PROVIDERS: ADMIT Family Medicine Adult Medicine; ATTEND Family Medicine Adult Medicine
PROC: 02HV33Z Insertion of Infusion Device into Superior Vena Cava, Percutaneous Approach (ICD-10-PCS; principal; 2019-03-01)
PROC: B548ZZA Ultrasonography of Superior Vena Cava, Guidance (ICD-10-PCS; 2019-03-01)
PROC: 5A09357 Assistance with Respiratory Ventilation, Less than 24 Consecutive Hours, Continuous Positive Airway Pressure (ICD-10-PCS; 2019-03-01)
PROC: 5A09357 Assistance with Respiratory Ventilation, Less than 24 Consecutive Hours, Continuous Positive Airway Pressure (ICD-10-PCS; 2019-03-03)
PROC: 5A1D70Z Performance of Urinary Filtration, Intermittent, Less than 6 Hours Per Day (ICD-10-PCS; 2019-03-03)
DX: A41.9 Sepsis, unspecified organism (principal); J69.0 Pneumonitis due to inhalation of food and vomit; L89.153 Pressure ulcer of sacral region, stage 3; N18.6 End stage renal disease; J96.00 Acute respiratory failure, unspecified whether with hypoxia or hypercapnia; G82.50 Quadriplegia, unspecified; I50.23 Acute on chronic systolic (congestive) heart failure; G92 Toxic encephalopathy; E46 Unspecified protein-calorie malnutrition; E87.1 Hypo-osmolality and hyponatremia; D68.9 Coagulation defect, unspecified; I42.9 Cardiomyopathy, unspecified; E87.2 Acidosis; K59.2 Neurogenic bowel, not elsewhere classified; I13.2 Hypertensive heart and chronic kidney disease with heart failure and with stage 5 chronic kidney disease, or end stage renal disease; D63.8 Anemia in other chronic diseases classified elsewhere; M48.02 Spinal stenosis, cervical region; I27.20 Pulmonary hypertension, unspecified; I48.0 Paroxysmal atrial fibrillation; R21 Rash and other nonspecific skin eruption; E87.5 Hyperkalemia; M50.30 Other cervical disc degeneration, unspecified cervical region; M47.892 Other spondylosis, cervical region; I08.0 Rheumatic disorders of both mitral and aortic valves; M48.061 Spinal stenosis, lumbar region without neurogenic claudication; E11.51 Type 2 diabetes mellitus with diabetic peripheral angiopathy without gangrene; L97.529 Non-pressure chronic ulcer of other part of left foot with unspecified severity; E11.621 Type 2 diabetes mellitus with foot ulcer; J44.9 Chronic obstructive pulmonary disease, unspecified; K59.00 Constipation, unspecified; E11.22 Type 2 diabetes mellitus with diabetic chronic kidney disease; N31.9 Neuromuscular dysfunction of bladder, unspecified; R33.9 Retention of urine, unspecified; R41.89 Other symptoms and signs involving cognitive functions and awareness; Z68.21 Body mass index [BMI] 21.0-21.9, adult; Z99.2 Dependence on renal dialysis; Z79.01 Long term (current) use of anticoagulants; Z88.0 Allergy status to penicillin; Z88.8 Allergy status to other drugs, medicaments and biological substances; Z79.899 Other long term (current) drug therapy
CPT/HCPCS: 36415; 36600; 71045; 76937; 80048; 80202; 82140; 82375; 82805; 82962; 83735; 84100; 84145; 92610; 93970; 94003; 94640; 94660; 97163; 97166; J0692; J1100; J1650; J3370; J7050; J7060; J7620